=== PATIENT | male | born 1935 | race Caucasian/White ===

== ENCOUNTER 2022-10-24 20:08 | Emergency (ER) | payer SELFPAY ==
[~2022-10-24] VITALS: Ht 167.6 cm; Wt 82.7 kg
[2022-10-24] MEDS ORDERED: LIDOcaine 1% W/epiNEPHrine 1:100,000 20ml vial IJ ONE (21:00)
[2022-10-24] MEDS ORDERED: HYDROcodone/acetaminophen 10/325mg tab PO ONE (21:00)
[2022-10-24] MEDS ORDERED: bacitracin 15gm ointment TP ONE (22:10)
[2022-10-24] MEDS ORDERED: HYDR-3973 PO (22:13)
[2022-10-24] MEDS ORDERED: ketorolac trometh inj. 60 MG/2 ML VIAL IM ONE (22:50)
[2022-10-24] MEDS ORDERED: TETanus/Pertussis (Acell)/Diphther VAC/PF (Tdap-Adult) 0.5ml syringe IMVAC ONE (23:10)
[2022-10-24 23:35] VITALS: BP 165/76
== END 2022-10-24 23:36 | disposition home or self-care (01) ==
LOC: ER 20:09
DX: S42.291A Other displaced fracture of upper end of right humerus, initial encounter for closed fracture (principal); S01.01XA Laceration without foreign body of scalp, initial encounter; Z79.899 Other long term (current) drug therapy; Z23 Encounter for immunization; W19.XXXA Unspecified fall, initial encounter; Y93.89 Activity, other specified; Y92.89 Other specified places as the place of occurrence of the external cause; Y99.8 Other external cause status
CPT/HCPCS: 12002; 70450; 72125; 73030; 73200; 90471; 90715; 93005; 96372; 99285; J1885; A4565; A6258; A6449